=== PATIENT | male | born 1975 | race Caucasian/White ===

== ENCOUNTER 2016-12-02 14:00 | Emergency (ER) | payer OTHER ==
[2016-12-02 14:06] VITALS: BP 127/74; PULSE 80; TEMP 98.2; BMI 25.0
--- NOTE | 2016-12-02 15:17 | PDOC ---
History of Present Illness - General History Source: Patient Exam Limitations: No Limitations - History of Present Illness Initial Comments: 12/02/16 17:25 The patient is a 41 year old male, with no significant past medical history, who presents today with a right wrist injury that occurred this morning. 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 This morning he was moving a big box that slipped out of his hand and hyperextended his wrist. He notes that the pain is localized to his right wrist, 6/10 in severity. He reports swelling in the pointer and middle finger of the right hand. He denies numbness and tingling of the fingers. He denies any other trauma. Allergies: none reported <Patty Nichole - Last Filed: 12/02/16 17:28> - History of Present Illness Initial Comments: 12/02/16 17:31 <Kg Vega - Last Filed: 12/02/16 17:33> - General Chief Complaint: Pain, Acute Stated Complaint: right hand/wrist pain Time Seen by Provider: 12/02/16 14:43 Past History <Patty Nichole - Last Filed: 12/02/16 17:28> - Past Medical History Other medical history: denies - Psycho/Social/Smoking Cessation Hx Anxiety: No Suicidal Ideation: No Smoking History: Never smoked Hx Alcohol Use: Yes Drug/Substance Use Hx: No Substance Use Type: Alcohol <Kg Vega - Last Filed: 12/02/16 17:33> - Past Medical History Allergies/Adverse Reactions: Allergies Allergy/AdvReac Type Severity Reaction Status Date / Time No Known Allergies Allergy Verified 12/02/16 14:01 Home Medications: Ambulatory Orders Ibuprofen 800 mg PO TID #20 tablet 12/02/16 Review of Systems - Review of Systems Able to Perform ROS?: Yes Comments:: 12/02/16 17:25 CONSTITUTIONAL: Absent: fever, chills, diaphoresis, generalized weakness, malaise, loss of appetite HEENT: Absent: rhinorrhea, nasal congestion, throat pain, throat swelling, difficulty swallowing, mouth swelling, ear pain, eye pain, visual Changes CARDIOVASCULAR: Absent: chest pain, syncope, palpitations, irregular heart rate, lightheadedness , peripheral edema RESPIRATORY: Absent: cough, shortness of breath, dyspnea with exertion, orthopnea, wheezing, stridor, hemoptysis GASTROINTESTINAL: Absent: abdominal pain, abdominal distension, nausea, vomiting, diarrhea, constipation, melena, hematochezia GENITOURINARY: Absent: dysuria, frequency, urgency, hesitancy, hematuria, flank pain, genital pain MUSCULOSKELETAL: Present: right wrist injury, swelling, and pain x 1 day Absent: myalgia, arthralgia, SKIN: Absent: rash, itching, pallor HEMATOLOGIC/IMMUNOLOGIC: Absent: easy bleeding, easy bruising, lymphadenopathy, frequent infections ENDOCRINE: Absent: unexplained weight gain, unexplained weight loss, heat intolerance, cold intolerance NEUROLOGIC: Absent: headache, focal weakness or paresthesias, dizziness, unsteady gait, seizure, mental status changes, bladder or bowel incontinence PSYCHIATRIC: Absent: anxiety, depression, suicidal or homicidal ideation, hallucinations. <Patty Nichole - Last Filed: 12/02/16 17:28> *Physical Exam - Vital Signs Last Vital Signs Temp Pulse Resp BP Pulse Ox 98.2 F 80 16 127/74 100 12/02/16 14:02 12/02/16 14:02 12/02/16 14:02 12/02/16 14:02 12/02/16 14:02 <Patty iNchole - Last Filed: 12/02/16 17:28> - Vital Signs Last Vital Signs Temp Pulse Resp BP Pulse Ox 98.2 F 80 16 127/74 100 12/02/16 14:02 12/02/16 14:02 12/02/16 14:02 12/02/16 14:02 12/02/16 14:02 <Kg Vega - Last Filed: 12/02/16 17:33> ED Treatment Course - RADIOLOGY Radiograph Interpretation: 12/02/16 17:28 EXAM#: TYPE/EXAM: RESULT: [id number] RAD/WRIST- RIGHT Status post injury to the scaphoid bone. X-ray of the right wrist, 4 views. The alignment is satisfactory. No gross fracture or dislocation is identified. There is no gross evidence of soft tissue swelling Impression: Unremarkable examination Reported By: Omar Black MD 12/02/16 [id number] <Patty Nichole - Last Filed: 12/02/16 17:28> Medical Decision Making - Medical Decision Making 12/02/16 17:31 X-ray of the right wrist including scaphoid view negative for fracture Examination reveals full pulses, no sensory or motor deficits to the wrist or hand, no deformity, swelling, or other sign of acute fracture. There is mild tenderness over the radial and ulnar aspects of the wrist. Impression is hyperextension, with sprain. Velcro splint applied. Rest ice elevation and anti-inflammatory medication. Follow-up with orthopedist if pain persists 3-5 days. <Kg Vega - Last Filed: 12/02/16 17:33> *DC/Admit/Observation/Transfer - Attestations Scribe Attestion: 12/02/16 17:26 Documentation prepared by SILVERIO Herrera, acting as medical donation professional for Kg Vega MD. <Patty Nichole - Last Filed: 12/02/16 17:28> - Discharge Dispostion Admit: No <Kg Vega - Last Filed: 12/02/16 17:33> Diagnosis at time of Disposition: Wrist sprain Qualifiers: Encounter type: initial encounter Laterality: right Qualified Code(s): S63.501A - Unspecified sprain of right wrist, initial encounter - Discharge Dispostion Condition at time of disposition: Stable - Prescriptions Prescriptions: Ibuprofen 800 mg PO TID #20 tablet - Referrals Referrals: Ariel Becerra MD [Staff Physician] - 3 days - Patient Instructions Printed Discharge Instructions: DI for Wrist Sprain Additional Instructions: Rest, ice, splint as directed, Motrin or Aleve. See orthopedist if no improvement for further evaluation and treatment 3-5 days. - Post Discharge Activity Work/School Note: Back to Work
== END 2016-12-02 16:23 | disposition home or self-care (01) ==
LOC: FER 14:00
PROC: 2W3EX1Z Immobilization of Right Hand using Splint (ICD-10-PCS; principal; 2016-12-02)
DX: S63.501A Unspecified sprain of right wrist, initial encounter (principal); X58.XXXA Exposure to other specified factors, initial encounter; Y93.89 Activity, other specified; Y92.9 Unspecified place or not applicable; Y99.0 Civilian activity done for income or pay
CPT/HCPCS: 73110-TC-RT; 99281-25

== ENCOUNTER 2017-02-24 00:19 | Emergency (ER) | payer OTHER ==
--- NOTE | 2017-02-24 00:25 | PDOC ---
History of Present Illness - General Chief Complaint: Eye Problem Stated Complaint: POSIBLE FORIEGN BODY OR SOLUTION TO RIGHT EYE Time Seen by Provider: 02/24/17 00:24 History Source: Patient Exam Limitations: No Limitations - History of Present Illness Initial Comments: 02/24/17 01:03 This is a 41-year-old male who comes in complaining of discomfort in his right eye. Patient was working and accidentally splashed some floor stripper into his eye. Patient rinsed the eye immediately with an eyewash solution and then came in for evaluation. I was unable to obtain a pH on the eye prior to irrigating it with normal saline. Patient said his vision was slightly blurred. Otherwise denied any other complaints. PAST MEDICAL HISTORY: no significant history PAST SURGICAL HISTORY: no significant history FAMILY HISTORY: no pertinant history SOCIAL HISTORY: Pt lives with family and is employed. MEDICATIONS: reviewed ALLERGIES: As per nursing notes Review of Systems General: No fevers or chills, no weakness, no weight loss HEENT: No change in vision. No sore throat,. No ear pain, discomfort right eye as per history of present illness CardioVascular: No chest pain or shortness of breath Respiratory:No cough, or wheezing. Gastrointestinal: no nausea, vomitting, diarrhea or constipation, No rectal bleeding Genitourinary: No dysuria, hematuria, or frequency Musculoskeletal: No joint or muscle pain or swelling Neurologic: No headache, vertigo, dizziness or loss of consciousness Psychiatric: nor depression Skin: No rashes or easy bruising Endocrine: no increased thirst or abnormal weight change Allergic: no skin or latex allergy All other systems reviewed and normal GENERAL: The patient is awake, alert, and fully oriented, in no acute distress. HEAD: Normal with no signs of trauma. EYES: Pupils equal, round and reactive to light, extraocular movements intact, sclera anicteric, conjunctiva slightly injected, with floor seizing staining there is no increase in uptake. There is no visible ojeda or abrasions to the cornea or sclera. EXTREMITIES: Normal range of motion, no edema. NEUROLOGICAL: Normal speech, normal gait. PSYCH: Normal mood, normal affect. SKIN: Warm, Dry, normal turgor, no rashes or lesions noted. This is a 41-year-old male who splashed a chemical in his eye while at work. The patient's eye was irrigated with a liter normal saline and was unable to determine the pH of the tears secondary to no pH paper. Patient on exam had no evidence of corneal burn or abrasion. Patient given tomorrow off from work and told that he has to follow-up with an veterinary radiologist for further evaluation to confirm that there is no burn or serious injury. As a precaution patient was started on Tobrex Past History - Past Medical History Allergies/Adverse Reactions: Allergies Allergy/AdvReac Type Severity Reaction Status Date / Time No Known Allergies Allergy Verified 02/24/17 00:22 Home Medications: Ambulatory Orders NK [No Known Home Medication] 02/24/17 - Psycho/Social/Smoking Cessation Hx Anxiety: No Suicidal Ideation: No Smoking History: Never smoked Hx Alcohol Use: Yes Drug/Substance Use Hx: No Substance Use Type: Alcohol *DC/Admit/Observation/Transfer Diagnosis at time of Disposition: Eye pain Qualifiers: Laterality: right Qualified Code(s): H57.11 - Ocular pain, right eye - Discharge Dispostion Disposition: HOME Condition at time of disposition: Stable Admit: No - Patient Instructions Additional Instructions: Apply one drop of the ophthalmic ointment in the right eye 4 times a day for 7 days. Call your eye doctor in the morning and follow-up with your eye doctor. Tylenol or Motrin as needed for pain. Return to the emergency department immediately with ANY new, persistent or worsening symptoms. Continue any medications as previously prescribed by your physician. You should follow up with your primary doctor as soon as possible regarding today's emergency department visit. . Please make sure your doctor reviews the results of your emergency evaluation. Thank you for coming to the Emergency Department today for your care. It was a pleasure to see you today. Please note that your evaluation is INCOMPLETE until you follow-up with your doctor.
[2017-02-24 00:36] VITALS: BP 121/97; PULSE 84; TEMP 98.4; BMI 24.7
[2017-02-24] MEDS ORDERED: TETRACAINE 0.5% HCL 0.6ML DROPPER.BOTTLE OD STA (00:38)
[2017-02-24] MEDS ORDERED: FLUORESCEIN NA 1 EA STRIP OD STA (00:38)
[2017-02-24] MEDS ORDERED: DIPHTH,PERTUSS(ACELL),TET 0.5 ML DISP.SYRIN IM ONE (01:00)
[2017-02-24] MEDS ORDERED: TOBRAMYCIN 0.3% OPHTH SOLN 5 ML BOTTLE OD ONE (01:00)
[2017-02-24] MEDS ORDERED: TOBRA 0.3%/DEXAMETH 0.1% OPHTHALMIC SUSP 2.5 ML BTL ONE (01:07)
== END 2017-02-24 01:21 | disposition home or self-care (01) ==
LOC: FER 00:19
PROC: 3E0234Z Introduction of Serum, Toxoid and Vaccine into Muscle, Percutaneous Approach (ICD-10-PCS; principal; 2017-02-24)
DX: H57.11 Ocular pain, right eye (principal)
CPT/HCPCS: 90715; 99282-25

== ENCOUNTER 2017-12-13 10:09 | Emergency (ER) | payer SELFPAY ==
[2017-12-13] MEDS ORDERED: KETOROLAC TROMETHAMINE 30 MG/1 ML VIAL IM ONE (10:18)
--- NOTE | 2017-12-13 10:23 | PDOC ---
History of Present Illness - General Chief Complaint: Injury Stated Complaint: MUSCLE PULL TO RIGHT SIDE INJURED SELF AT WORK Time Seen by Provider: 12/13/17 10:11 - History of Present Illness Initial Comments: 12/13/17 10:19 42 M with no PMH presents to ED with R ribcage pain. 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 The mattress slipped out of his hand and he turned his body to grab it. As soon has he grabbed the falling mattress, he felt a pain in his R chest wall. He states he feels like he pulled a muscle. Pt denies falling, denies hitting his head. He states the pain in his ribcage is worse with twisting movements and taking deep breaths. However, he denies SOB. Denies F/C/cough. Denies pain anywhere else. Past History - Past Medical History Allergies/Adverse Reactions: Allergies Allergy/AdvReac Type Severity Reaction Status Date / Time No Known Allergies Allergy Verified 12/13/17 10:11 - Suicide/Smoking/Psychosocial Hx Smoking History: Never smoked Hx Alcohol Use: Yes Drug/Substance Use Hx: No Substance Use Type: Alcohol Review of Systems - Review of Systems Comments:: 12/13/17 10:20 "GENERAL/CONSTITUTIONAL: No fever or chills. No weakness. HEAD, EYES, EARS, NOSE AND THROAT: No change in vision. No ear pain or discharge. No sore throat. CARDIOVASCULAR: No chest pain or shortness of breath. RESPIRATORY: No cough, wheezing, or hemoptysis. GASTROINTESTINAL: No nausea, vomiting, diarrhea or constipation. GENITOURINARY: No dysuria, frequency, or change in urination. MUSCULOSKELETAL: + R chest wall pain, No joint or muscle swelling or pain. No neck or back pain. SKIN: No rash NEUROLOGIC: No headache, vertigo, loss of consciousness, or change in strength/ sensation. ENDOCRINE: No increased thirst. No abnormal weight change. HEMATOLOGIC/LYMPHATIC: No anemia, easy bleeding, or history of blood clots. ALLERGIC/IMMUNOLOGIC: No hives or skin allergy. " *Physical Exam - Physical Exam Comments: 12/13/17 10:21 "GENERAL: Awake, alert, and fully oriented, in no acute distress. HEAD: No signs of trauma EYES: PERRLA, EOMI, sclera anicteric, conjunctiva clear ENT: Auricles normal inspection, hearing grossly normal, nares patent, oropharynx clear without exudates. Moist mucosa NECK: Nontender, no stepoffs, Normal ROM, supple, no lymphadenopathy, JVD, or masses CHEST: + R lower chest wall with mild tenderness, no crepitus LUNGS: Breath sounds equal, clear to auscultation bilaterally. No wheezes, and no crackles HEART: Regular rate and rhythm, normal S1 and S2, no murmurs, rubs or gallops ABDOMEN: Soft, nontender, normoactive bowel sounds. No guarding, no rebound. No masses EXTREMITIES: Normal range of motion, no edema. No clubbing or cyanosis. No cords, erythema, or tenderness NEUROLOGICAL: Cranial nerves II through XII intact. 5/5 strength and sensation in all extremities, Normal speech, normal gait, normal cerebellar function SKIN: Warm, Dry, normal turgor, no rashes or lesions noted. " ED Treatment Course - RADIOLOGY Radiology Studies Ordered: Category Date Time Status RIBS RIGHT SIDE [RAD] Stat Radiology 12/13/17 10:18 Ordered Medical Decision Making - Medical Decision Making 12/13/17 10:21 42 M with R chest wall pain after twisting while moving a mattress yesterday. Likely muscle sprain, possibly intercostal muscle, as pain is positional. Unlikely rib fx, as mechanism is fairly mild. Pt with no abdominal tenderness, negative lozano's. No PE risk factors, PERC score 0. - XR Ribs - Toradol 12/13/17 12:41 XR negative on my read Still pending radiology review. Pt reassessed - now with significantly improved pain. Pt is well appearing, with normal vitals. Clinically stable for DC at this time. I discussed the physical exam findings, ancillary test results and final diagnoses with the patient. I answered all of the patient's questions. The patient was satisfied with the care received and felt comfortable with the discharge plan and treatment plan. The patient agrees to follow up with the primary care physician within 24-72 hours. *DC/Admit/Observation/Transfer Diagnosis at time of Disposition: Chest wall pain - Discharge Dispostion Disposition: HOME Condition at time of disposition: Stable - Referrals - Patient Instructions Printed Discharge Instructions: DI for Muscle Strain Additional Instructions: Take ibuprofen or tylenol as needed for pain. If you experience worsening pain, difficulty breathing, fevers, or any other concerning symptoms, return to the ER immediately. Otherwise, follow up with your primary doctor within 1 week. - Post Discharge Activity Forms/Work/School Notes: Back to Work - Attestations Physician Attestion: 12/13/17 11:46 I, Dr. Ariel Crespo MD, attest that this document has been prepared under my direction and personally reviewed by me in its entirety. I further attest, that it accurately reflects all work, treatment, procedures and medical decision -making performed by me.
[2017-12-13 10:27] VITALS: BP 122/83; PULSE 55; TEMP 98.9; BMI 21.9
[2017-12-13] MEDS ORDERED: KETOROLAC TROMETHAMINE 30 MG/1 ML VIAL ONE (10:28)
== END 2017-12-13 12:53 | disposition home or self-care (01) ==
LOC: FER 10:09
PROC: 3E0233Z Introduction of Anti-inflammatory into Muscle, Percutaneous Approach (ICD-10-PCS; principal; 2017-12-13)
DX: R07.89 Other chest pain (principal)
CPT/HCPCS: 71101-TC-RT-FY; 99281-25

== ENCOUNTER 2019-07-10 13:44 | Observation (INO) | payer OTHER ==
[2019-07-10 13:58] VITALS: BMI 18.8
[2019-07-10] MEDS ORDERED: ONDANSETRON 4 MG/2 ML VIAL IVPUSH ONE (14:00)
--- NOTE | 2019-07-10 14:01 | PDOC ---
Rapid Medical Evaluation Chief Complaint: Lightheaded Time Seen by Provider: 07/10/19 13:56 Medical Evaluation: Allergies Allergy/AdvReac Type Severity Reaction Status Date / Time No Known Allergies Allergy Verified 07/10/19 13:58 Vital Signs Temp Pulse Resp BP Pulse Ox 97.3 F L 65 18 130/66 100 07/10/19 13:54 07/10/19 13:54 07/10/19 13:54 07/10/19 13:54 07/10/19 13:54 07/10/19 13:59 I have performed a brief in-person evaluation of this patient. The patient presents with a chief complaint of: dizziness and n/v this am. Denies any pmhx and denies drug/etoh use Pertinent physical exam findings:Stable here but actively vomiting in triage I have ordered the following:ekg/labs The patient will proceed to the ED for further evaluation. Discharge Disposition - Diagnosis Dizziness - Referrals - Patient Instructions - Post Discharge Activity
--- NOTE | 2019-07-10 15:01 | PDOC ---
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 He reports he had 7x emesis nbnb and has never had these symptoms before. He denies any recent illness, travel, fevers, cough, congestions, chest pain, dysuria or hematuria. He has no other complaints. ROS GENERAL/CONSTITUTIONAL: No fever or chills. No weakness. HEAD, EYES, EARS, NOSE AND THROAT: No sore throat. CARDIOVASCULAR: No chest pain or shortness of breath RESPIRATORY: No cough, wheezing, or hemoptysis. GASTROINTESTINAL: + nausea, vomiting, No diarrhea or constipation. GENITOURINARY: No dysuria, frequency, or change in urination. MUSCULOSKELETAL: No joint or muscle swelling or pain. No neck or back pain. SKIN: No rash NEUROLOGIC: No headache, + vertigo, No loss of consciousness, or change in strength/sensation. PE GENERAL: Awake, alert, and fully oriented, in no acute distress HEAD: No signs of trauma, normocephalic, atraumatic EYES: PERRLA, EOMI, sclera anicteric, conjunctiva clear, + R sided nystagmus ENT: oropharynx clear without exudates. Moist mucosa NECK: Normal ROM, supple LUNGS: No distress, speaks full sentences, clear to auscultation bilaterally HEART: Regular rate and rhythm, normal S1 and S2, no murmurs, rubs or gallops, peripheral pulses normal and equal bilaterally. ABDOMEN: Soft, nontender No guarding, no rebound. No masses EXTREMITIES : Normal inspection, Normal range of motion, no edema. No clubbing or cyanosis. NEUROLOGICAL: Cranial nerves II through XII grossly intact. Normal speech, no focal sensorimotor deficits, no deficits on finger to nose and heel to ordriguez SKIN: Warm, Dry, normal turgor, no rashes or lesions noted MDM DDX including but not limited to: r/o cerebellar stroke electroylte vs infectious r/o flu ED Course: Patient feels acutely dizzy but has no neurological deficit unable to assess ambulation at this time as patient is acute dizzy will dose zofran, meclizine EKG: sinus rhythm at 57bpm, prolonged QT to 494, possible T wave inversions in V1,v2,v3 Call placed to cardiology Dr. Mooer to review EKG, he will review shortly. 07/10/19 18:19 Cardiology reviewed image does not feel EKG is consistent with wellens or brugada, does not suggest furher cardiac workup at this time as the patient does not have chest pain or syncope labs with leukocytosis Head CT with no acute pathology 07/10/19 17:52 on reassessment patient reports feeling moderate improvement of symptoms and has ambulated but with assistance He still reports dizziness Will admit patient for r/o cerebellar stroke Kelsey Fajardo, PGY2 Emergency Medicine 07/10/19 18:26 Past History - Past Medical History Allergies/Adverse Reactions: Allergies Allergy/AdvReac Type Severity Reaction Status Date / Time No Known Allergies Allergy Verified 07/10/19 13:58 Home Medications: Ambulatory Orders Meclizine HCl [Antivert -] 25 mg PO Q8H PRN #30 tablet 07/11/19 COPD: No - Psycho Social/Smoking Cessation Hx Smoking History: Never smoked Hx Alcohol Use: Yes Drug/Substance Use Hx: No Substance Use Type: Alcohol *Physical Exam - Vital Signs Last Vital Signs Temp Pulse Resp BP Pulse Ox 97.3 F L 65 18 130/66 100 07/10/19 13:54 07/10/19 13:54 07/10/19 13:54 07/10/19 13:54 07/10/19 13:54 ED Treatment Course - LABORATORY CBC & Chemistry Diagram: 07/11/19 06:10 07/11/19 06:10 Discharge - Discharge Information Problems reviewed: Yes Clinical Impression/Diagnosis: Dizziness Condition: Good Disposition: HOME - Follow up/Referral - Patient Discharge Instructions - Post Discharge Activity
[2019-07-10] MEDS ORDERED: MECLIZINE HCL 25 MG TABLET (FP) PO ONE (15:11)
[2019-07-10] MEDS ORDERED: SODIUM CHLORIDE 1,000 ML IV SCH (15:15)
[2019-07-10] MEDS ORDERED: ONDANSETRON 4 MG/2 ML VIAL ONE (15:51)
[2019-07-10] MEDS ORDERED: MECLIZINE HCL 25 MG TABLET (FP) ONE (15:51)
[2019-07-10 16:05] LABS: BASO % 0.1 % (0-2.0); EOS % 0.1 % (0-4.5); HEMATOCRIT 47.4 % (35.4-49); LYMPH % 6.2 % (8-40); MCH 28.3 pg (25.7-33.7); MCHC 33.7 g/dl (32.0-35.9); MEAN CELL VOLUME 83.9 fl (80-96); MEAN PLT VOLUME 9.6 fl (7.5-11.1); MONO % 6.5 % (3.8-10.2); NEUT % 87.1 % (42.8-82.8); PLATELET COUNT 219 K/MM3 (134-434); RBC 5.65 M/mm3 (4.00-5.60); RDW 13.8 % (11.9-15.9); WHITE BLOOD COUNT 17.3 K/mm3 (4.0-10.0)
--- NOTE | 2019-07-10 17:18 | PDOC ---
Documentation entered by Vanessa Romano SCRIBE, acting as scribe for Vannessa Roe MD. Vannessa Roe MD: This documentation has been prepared by the Juan Antonio duncan Xhesika, SCRIBE, under my direction and personally reviewed by me in its entirety. I confirm that the documentation accurately reflects all work, treatment, procedures, and medical decision making performed by me. Attending Attestation - Resident Resident Name: Kelsey Fajardo - ED Attending Attestation I have performed the following: I have examined & evaluated the patient, The case was reviewed & discussed with the resident, I agree w/resident's findings & plan, Exceptions are as noted - HPI HPI: 07/10/19 15:37 The patient is a 43 year old male with no PMH who presents to the ED with slow onset dizziness and lightheadedness while at work. Pt describes dizziness as "room spinning." Pt reports 7 episodes of nbnb emesis, prompting his arrival to the ED. The patient denies chest pain, shortness of breath. Denies fever, chills, cough , nausea, diarrhea and constipation. Denies dysuria, frequency, urgency and hematuria. Allergies: NKDA - Physicial Exam PE: 07/10/19 17:04 GENERAL: The patient is in no acute distress. ENT: Ears normal, nares patent, oropharynx clear without exudates. Moist mucous membranes. NECK: Normal range of motion, supple LUNGS: Breath sounds equal, clear to auscultation bilaterally. No wheezes, and no crackles. HEART:Regular rate and rhythm, normal S1 and S2 without murmur, rub or gallop. ABDOMEN: Soft, nontender, normoactive bowel sounds. EXTREMITIES: Normal range of motion, no edema. NEUROLOGICAL: Cranial nerves II through XII grossly intact. Normal speech. No focal neurological deficits. No dysmetria, no dysdiadokinesis No focal weakness or numbness SKIN: Warm, Dry, normal turgor, no rashes or lesions noted. - Medical Decision Making 07/10/19 17:16 Laboratory Tests 07/10/19 07/10/19 15:50 15:50 WBC 17.3 H Hgb 16.0 Hct 47.4 Plt Count 219 Absolute Neuts (auto) 15.0 H Neutrophils % 87.1 H Alcohol, Quantitative < [address] pending Will repeat CMP Pt with leukocytosis ? pneumonia, UTI, Flu Will assess for these
[2019-07-10 18:01] LABS: ALBUMIN 3.9 g/dl (3.4-5.0); BILIRUBIN,TOTAL 0.6 mg/dL (0.2-1); BLOOD UREA NITROGEN 14.3 mg/dL (7-18); CALCIUM 9.1 mg/dL (8.5-10.1); CREATININE 0.9 mg/dL (0.55-1.3); POTASSIUM 4.3 mmol/L (3.5-5.1); TOT PROT 7.8 g/dl (6.4-8.2)
[2019-07-10 18:02] LABS: PH,URINE >= 9.0 (5.0-8.0); URINE APPEARANCE CLEAR; URINE BILIRUBIN NEGATIVE (NEGATIVE); URINE COLOR YELLOW; URINE GLUCOSE (UA) NEGATIVE (NEGATIVE); URINE KETONE TRACE (NEGATIVE); URINE LEUK ESTERASE NEGATIVE (NEGATIVE); URINE NITRITE NEGATIVE (NEGATIVE); URINE PROTEIN NEGATIVE (NEGATIVE); URINE UROBILINOGEN 0.2 mg/dL (0.2-1.0)
[2019-07-10 18:15] LABS: COCAINE, UR NEGATIVE ng/ml (CUTOFF=300); METHADONE, UR NEGATIVE ng/ml (CUTOFF=300); OPIATES, URI NEGATIVE ng/ml (CUTOFF=300); PHENCYCLIDINE,URINE NEGATIVE ng/ml (CUTOFF=25); URINE AMPHETAMINES NEGATIVE ng/ml (CUTOFF=500); URINE BARBITURATES NEGATIVE ng/ml (CUTOFF=200); URINE BENZODIAZEPINES NEGATIVE ng/ml (CUTOFF=200)
--- NOTE | 2019-07-10 20:04 | HP ---
CHIEF COMPLAINT: dizziness PCP: José HISTORY OF PRESENT ILLNESS: This is a 43yM with no significant past medical history who presented with dizziness since this morning. Pt describes sensation as room spinning and worsens with position changes. He states the onset was gradual. He also reports 7 episodes vomiting. Denies abdominal pain, chest pain, palpitations, shortness of breath. Of note he had a diarrheal illness for approximately 2 weeks that resolved several days ago. At that time he was having RUQ pain but did not go to the doctor. He states that the dizziness improved since arrival to the ED and has had no further vomiting or nausea since receiving meclizine and zofran. ER course was notable for: (1) ECG with QTC 494 (2) received meclizine po and zofran 4mg IVP Recent Travel: pt denies PAST MEDICAL HISTORY: gallstone PAST SURGICAL HISTORY: none Social History: Smoking: pt denies Alcohol: occasional Drugs: pt denies Allergies No Known Allergies Allergy (Verified 07/10/19 13:58) HOME MEDICATIONS: 3 Medication Instructions Recorded NK [No Known Home Medication] 07/10/19 REVIEW OF SYSTEMS CONSTITUTIONAL: Absent: fever, chills, diaphoresis, generalized weakness, malaise, loss of appetite, weight change HEENT: Absent: rhinorrhea, nasal congestion, throat pain, throat swelling, difficulty swallowing, mouth swelling, ear pain, eye pain, visual changes CARDIOVASCULAR: Present: lightheadedness Absent: chest pain, syncope, palpitations, irregular heart rate, peripheral edema RESPIRATORY: Absent: cough, shortness of breath, dyspnea with exertion, orthopnea, wheezing, stridor, hemoptysis GASTROINTESTINAL: Absent: abdominal pain, abdominal distension, nausea, vomiting, diarrhea, constipation, melena, hematochezia GENITOURINARY: Absent: dysuria, frequency, urgency, hesitancy, hematuria, flank pain, genital pain MUSCULOSKELETAL: Absent: myalgia, arthralgia, joint swelling, back pain, neck pain SKIN: Absent: rash, itching, pallor HEMATOLOGIC/IMMUNOLOGIC: Absent: easy bleeding, easy bruising, lymphadenopathy, frequent infections ENDOCRINE: Absent: unexplained weight gain, unexplained weight loss, heat intolerance, cold intolerance NEUROLOGIC: Present: dizziness Absent: headache, focal weakness or paresthesias, unsteady gait, seizure, mental status changes, bladder or bowel incontinence PSYCHIATRIC: Absent: anxiety, depression, suicidal or homicidal ideation, hallucinations. PHYSICAL EXAMINATION Vital Signs - 24 hr 3 07/10/19 07/10/19 13:54 17:09 Temperature 97.3 F L Pulse Rate 65 Respiratory 18 Rate Blood Pressure 130/66 O2 Sat by Pulse 100 98 Oximetry (%) GENERAL: Awake, alert, and fully oriented, in no acute distress. HEAD: Normal with no signs of trauma. EYES: Pupils equal, round and reactive to light, extraocular movements intact, sclera anicteric, conjunctiva clear. No lid lag. EARS, NOSE, THROAT: Ears normal, nares patent, oropharynx clear without exudates. Moist mucous membranes. NECK: Normal range of motion, supple without lymphadenopathy, JVD, or masses. LUNGS: Breath sounds equal, clear to auscultation bilaterally. No wheezes, and no crackles. No accessory muscle use. HEART: Regular rate and rhythm, normal S1 and S2 without murmur, rub or gallop. ABDOMEN: Soft, nontender, not distended, normoactive bowel sounds, no guarding, no rebound, no masses. No hepatomegaly or splenomegaly. MUSCULOSKELETAL: Normal range of motion at all joints. No bony deformities or tenderness. No CVA tenderness. UPPER EXTREMITIES: 2+ pulses, warm, well-perfused. No cyanosis. No clubbing. No peripheral edema. LOWER EXTREMITIES: 2+ pulses, warm, well-perfused. No calf tenderness. No peripheral edema. NEUROLOGICAL: Cranial nerves II-XII intact. Normal speech. PSYCHIATRIC: Cooperative. Good eye contact. Appropriate mood and affect. SKIN: Warm, dry, normal turgor, no rashes or lesions noted, normal capillary refill. Laboratory Results - last 24 hr 3 07/10/19 07/10/19 07/10/19 15:50 15:50 15:50 WBC 17.3 H RBC 5.65 H Hgb 16.0 Hct 47.4 MCV 83.9 MCH 28.3 MCHC 33.7 RDW 13.8 Plt Count 219 MPV 9.6 Absolute Neuts (auto) 15.0 H Neutrophils % 87.1 H Lymphocytes % 6.2 L Monocytes % 6.5 Eosinophils % 0.1 Basophils % 0.1 Nucleated RBC % 0 Sodium Cancelled Potassium Cancelled Chloride Cancelled Carbon Dioxide Cancelled Anion Gap Cancelled BUN Cancelled Creatinine Cancelled Est GFR (CKD-EPI)AfAm Cancelled Est GFR (CKD-EPI)NonAf Cancelled Random Glucose Cancelled Calcium Cancelled Total Bilirubin Cancelled AST Cancelled ALT Cancelled Alkaline Phosphatase Cancelled Total Protein Cancelled Albumin Cancelled Urine Color Urine Appearance Urine pH Ur Specific [place] Urine Protein Urine Glucose (UA) Urine Ketones Urine Blood Urine Nitrite Urine Bilirubin Urine Urobilinogen Ur Leukocyte Esterase Opiates Screen Methadone Screen Barbiturate Screen Phencyclidine Screen Ur Amphetamines Screen MDMA (Ecstasy) Screen Benzodiazepines Screen Cocaine Screen U Marijuana (THC) Screen Alcohol, Quantitative < 3 HIV 1&2 Antibody Screen HIV P24 Antigen Influenza A (Rapid) Influenza B (Rapid) 3 07/10/19 07/10/19 07/10/19 15:50 17:00 17:00 WBC RBC Hgb Hct MCV MCH MCHC RDW Plt Count MPV Absolute Neuts (auto) Neutrophils % Lymphocytes % Monocytes % Eosinophils % Basophils % Nucleated RBC % Sodium 139 Potassium 4.3 Chloride 105 Carbon Dioxide 27 Anion Gap 7 L BUN 14.3 Creatinine 0.9 Est GFR (CKD-EPI)AfAm 122.52 Est GFR (CKD-EPI)NonAf 105.71 Random Glucose 100 Calcium 9.1 Total Bilirubin 0.6 AST 22 ALT 34 Alkaline Phosphatase 65 Total Protein 7.8 Albumin 3.9 Urine Color Urine Appearance Urine pH Ur Specific [place] Urine Protein Urine Glucose (UA) Urine Ketones Urine Blood Urine Nitrite Urine Bilirubin Urine Urobilinogen Ur Leukocyte Esterase Opiates Screen Methadone Screen Barbiturate Screen Phencyclidine Screen Ur Amphetamines Screen MDMA (Ecstasy) Screen Benzodiazepines Screen Cocaine Screen U Marijuana (THC) Screen Alcohol, Quantitative HIV 1&2 Antibody Screen Negative HIV P24 Antigen Negative Influenza A (Rapid) Negative Influenza B (Rapid) Negative 3 07/10/19 07/10/19 17:57 17:57 WBC RBC Hgb Hct MCV MCH MCHC RDW Plt Count MPV Absolute Neuts (auto) Neutrophils % Lymphocytes % Monocytes % Eosinophils % Basophils % Nucleated RBC % Sodium Potassium Chloride Carbon Dioxide Anion Gap BUN Creatinine Est GFR (CKD-EPI)AfAm Est GFR (CKD-EPI)NonAf Random Glucose Calcium Total Bilirubin AST ALT Alkaline Phosphatase Total Protein Albumin Urine Color Yellow Urine Appearance Clear Urine pH >= 9.0 H Ur Specific [place] 1.017 Urine Protein Negative Urine Glucose (UA) Negative Urine Ketones Trace H Urine Blood Negative Urine Nitrite Negative Urine Bilirubin Negative Urine Urobilinogen 0.2 Ur Leukocyte Esterase Negative Opiates Screen Negative Methadone Screen Negative Barbiturate Screen Negative Phencyclidine Screen Negative Ur Amphetamines Screen Negative MDMA (Ecstasy) Screen Negative Benzodiazepines Screen Negative Cocaine Screen Negative U Marijuana (THC) Screen Negative Alcohol, Quantitative HIV 1&2 Antibody Screen HIV P24 Antigen Influenza A (Rapid) Influenza B (Rapid) ASSESSMENT/PLAN: 43yM with no significant PMH presented with dizziness. Dizziness likely Vertigo - unclear etiology, improved with meclizine, cont same - observe overnight, if not improving neuro consult and consider MRI. Leukocytosis - afebrile, no focal symptoms - ? reactive in s/o vomiting, repeat in am - blood cultures if febrile DVT PPX - deferred, likely less than 48h stay, reassess if stay exceeds. FEN - tolerating po - bmp in am - regular diet as tolerated Dispo: Pt currently requires further observation for management of his emergent condition. Family Medical History Family Hx Cardiac Disorders: Mother (HTN, HLD, CVA), Father (HTN, HLD) Family Hx Nuerologic Problems: Mother (seizure) Visit type - Emergency Visit Emergency Visit: Yes ED Registration Date: 07/10/19 Care time: The patient presented to the Emergency Department on the above date and was hospitalized for further evaluation of their emergent condition. - New Patient This patient is new to me today: Yes Date on this admission: 07/10/19 - Critical Care Critical Care patient: No
[2019-07-10] MEDS ORDERED: MECLIZINE HCL 12.5 MG TABLET PO PRN (20:07)
[2019-07-11 06:58] LABS: BASO % 0.1 % (0-2.0); EOS % 1.1 % (0-4.5); HEMATOCRIT 40.7 % (35.4-49); HEMOGLOBIN 13.9 GM/dL (11.7-16.9); LYMPH % 22.5 % (8-40); MCH 28.3 pg (25.7-33.7); MCHC 34.2 g/dl (32.0-35.9); MEAN CELL VOLUME 82.7 fl (80-96); MEAN PLT VOLUME 9.3 fl (7.5-11.1); MONO % 12.3 % (3.8-10.2); PLATELET COUNT 212 K/MM3 (134-434); RBC 4.92 M/mm3 (4.00-5.60); RDW 13.7 % (11.9-15.9); WHITE BLOOD COUNT 9.4 K/mm3 (4.0-10.0)
[2019-07-11 07:24] LABS: BLOOD UREA NITROGEN 10.9 mg/dL (7-18); CALCIUM 8.3 mg/dL (8.5-10.1); CREATININE 0.9 mg/dL (0.55-1.3); MAGNESIUM 2.4 mg/dL (1.8-2.4); PHOSPHOROUS 3.7 mg/dL (2.5-4.9); POTASSIUM 3.8 mmol/L (3.5-5.1)
--- NOTE | 2019-07-11 09:02 | DS ---
Physical Examination Vital Signs: Vital Signs Temperature 97.7 F 07/11/19 07:30 Pulse Rate 67 07/11/19 07:30 Respiratory Rate 15 07/11/19 07:30 Blood Pressure 129/77 07/11/19 07:30 O2 Sat by Pulse Oximetry (%) 98 07/11/19 07:30 Constitutional: Yes: Well Nourished, Calm Eyes: Yes: EOM Intact HENT: Yes: Normocephalic Neck: Yes: Trachea Midline Cardiovascular: Yes: Regular Rate and Rhythm Respiratory: Yes: CTA Bilaterally Gastrointestinal: Yes: Normal Bowel Sounds, Soft Musculoskeletal: Yes: WNL Extremities: Yes: WNL Edema: No Peripheral Pulses WNL: Yes Neurological: Yes: WNL, Alert, Oriented. No: Tremors, Weakness Psychiatric: Yes: WNL Labs: CBC, BMP 07/11/19 06:10 07/11/19 06:10 Discharge Summary Problems reviewed: Yes Reason For Visit: DIZZINESS Current Active Problems Dizziness (Acute) Hospital Course: Came to er with sudden onset 1 day duration of vertigo has had diarrheal illness 1-2 weeks prior, which has resolved couple days ago initial wbc count high, normalized after iv hydration, head ct, cxr, ua and liver functions were all normal vertigo resolved with meclizine feels well, has no neurological deficits and is ambulatory medically stable to dc home and f/up in office in 1 day Condition: Good - Instructions Diet, Activity, Other Instructions: follow up in office tomorrow am Referrals: Vero Kumar MD [Primary Care Provider] - Disposition: HOME - Home Medications Comprehensive Discharge Medication List: Ambulatory Orders Meclizine HCl [Antivert -] 25 mg PO Q8H PRN #30 tablet 07/11/19
[2019-07-11 09:14] VITALS: BP 126/76; PULSE 72; TEMP 97.8
--- NOTE | 2019-07-11 11:56 | EKG ---
Test Reason : Blood Pressure : / mmHG Vent. Rate : 057 BPM Atrial Rate : 057 BPM P-R Int : 156 ms QRS Dur : 092 ms QT Int : 508 ms P-R-T Axes : 074 080 074 degrees QTc Int : 494 ms SINUS BRADYCARDIA POSSIBLE LEFT ATRIAL ENLARGEMENT LEFT VENTRICULAR HYPERTROPHY PROLONGED QT ABNORMAL ECG NO PREVIOUS ECGS AVAILABLE Confirmed by SHANNON XIE MD ([id number]) on 07/11/2019 11:55:41 AM Referred By: Confirmed By:SHANNON XIE MD
== END 2019-07-11 09:30 | disposition home or self-care (01) ==
LOC: JER 13:44 → JERBED 18:23
PROVIDERS: ADMIT Internal Medicine; ATTEND Internal Medicine
PROC: 3E033GC Introduction of Other Therapeutic Substance into Peripheral Vein, Percutaneous Approach (ICD-10-PCS; principal; 2019-07-10)
PROC: 3E0337Z Introduction of Electrolytic and Water Balance Substance into Peripheral Vein, Percutaneous Approach (ICD-10-PCS; 2019-07-10)
DX: R42 Dizziness and giddiness (principal); D72.829 Elevated white blood cell count, unspecified; I45.81 Long QT syndrome
CPT/HCPCS: 36415; 70450-TC; 71045-TC-FY; 80048; 80053; 80307; 81003; 83735; 84100; 85025; 87389; 87804; 93005; 93010; 99284-25; G0378; J7030